=== PATIENT | female | born 1965 | race Two or more races ===

== ENCOUNTER 2023-05-13 14:02 | Emergency (ER) | payer MEDICAID ==
[~2023-05-13] VITALS: Ht 152.4 cm; Wt 73.0 kg
[2023-05-13 14:05] VITALS: BP 144/77; PULSE 82; RESP 14; TEMP 98; O2SAT 100
[2023-05-13] MEDS ORDERED: ONDANSETRON HCL 4MG/2ML INJ IV STA (14:12)
[2023-05-13] MEDS ORDERED: MORPHINE SULFATE 4 MG/ML CPJ (NOT FOR IM USE) IV STA (14:12)
[2023-05-13] MEDS ORDERED: SODIUM CHLORIDE 0.9% 1,000 ML IV ONE (14:15)
== END 2023-05-13 17:15 | disposition left against medical advice (07) ==
LOC: ER 14:02 → CANBEDREQ 21:25
DX: R10.32 Left lower quadrant pain (principal)
CPT/HCPCS: 99283; J7030